=== PATIENT | female | born 1995 | race Caucasian/White ===

== ENCOUNTER 2020-02-25 19:55 | Inpatient (IN) | payer OTHER ==
[2020-02-25] MEDS ORDERED: Nalbuphine 10 MG/ML Syringe IVPUSH PRN (21:08)
[2020-02-25] MEDS ORDERED: Sodium Chloride 0.9% 10 ML Syringe FLUSH PRN (21:08)
[2020-02-25] MEDS ORDERED: Ondansetron 4 MG/2 ML SDV IVPUSH PRN (21:08)
[2020-02-25] MEDS ORDERED: Oxytocin/Lactated Ringers 10 UNIT/1,000 ML BAG IV SCH (21:15)
[2020-02-25] MEDS: Lactated Ringers 1,000 ML IV SCH (21:30)
[2020-02-25] MEDS ORDERED: Ampicillin 2 GM in Sodium Chloride 0.9% 100 ML IV ONE (21:30)
--- NOTE | 2020-02-25 21:47 | PCM.LDHP ---
L&D History of Present Illness - General Date of Service: 02/25/20 Admit Problem/Dx: Patient Status Order with Admit Dx/Problem 02/25/20 20:07 Patient Status [ADT] Routine Admission Diagnosis/Problem Admission Diagnosis/Problem 02/25/20 21:36 Cora is a 24-year-old 1 para 0 white female admitted on 02/25/2020 with decreased activity and suspected rupture membranes at 39-4/7 weeks gestational age with an STU of 02/28/2020. Amnio sure is positive. Cervix is dilated somewhat since her last visit in clinic and is at plus centimeters, 80% effaced, -3 station, mid position, soft, cephalic presentation. Source of Information: Patient History Limitations: Reports: No Limitations - History of Present Illness Introduction:: Cora is a 24-year-old 1 para 0 white female admitted on 02/25/2020 with decreased activity and suspected rupture membranes at 39-4/7 weeks gestational age with an STU of 02/28/2020. Amnisure is positive. Cervix is dilated somewhat since her last visit in clinic and is at plus centimeters, 80% effaced, -3 station, mid position, soft, cephalic presentation. heart tones reassuring with reactive NST. Contractions are occurring every 3-5 minutes and are mild in nature. [employer] history: Cora is a 1 para 0. Her STU of 02/28/2020 was sent by certain last menstrual period starting on 05/24/2019 is supported by 2 ultrasound during the . These were done on 08/09/2019 and 10/25/2019. Patient was seen early in the with her first visit on 2018 at 12 weeks gestational age. She was seen regularly during the course of . She had a weight gain of approximately 24.6 pounds. This was from a pre- weight of 148.8 pounds 2 173.2 pounds. Vital signs remained stable throughout the course and her fundal height growth was appropriate for dates. She is group B strep positive but has no allergies therefore has been advised to undergo ampicillin group B strep prophylaxis per protocol. She plans to breast-feed. She was a centering patient. [place] noninvasive screen was performed and was negative for trisomy 21, 18 and 13. Patient plans to have epidural in labor and delivery for analgesia. Laboratory testing shows blood to be A+ with a negative MRI screening. Hemoglobin is 13.0 g/dL first medical visit and platelets were 292,000. She is rubella immune. Patient group B strep on her initial urine culture. Hepatitis B surface antigen and HIV SCDs were both negative. Chlamydia and gonorrhea assays were both negative. Had her T Dap immunization on 01/03/2020. Second trimester labs show hemoglobin of 11.8 g or deciliter and platelets at 243,000. Her 1 hour GTT was normal at 118. RPR on 08/09/2019 was nonreactive. Allergies: None Medications: 1. Colace 100 mg oral capsules 1-3 times per day when necessary for constipation 2. gummy vitamins 2 per day 3. Ferrous sulfate 325 mg by mouth daily Past medical history: 1. [place] teeth extraction 2009. Past surgical history: Unremarkable Family history: Mother is alive with thyroid dysfunction on medication. Father is alive and well. 2 sisters alive and generally healthy. Younger sister has thyroid dysfunction and is on medication. Maternal grandmother is alive and well. Maternal grandfather is secondary to type 2 diabetes and obesity. Paternal grandmother is secondary to MS. Paternal grandfather is alive and well at age 93. There is no known family history of cancer, bleeding or blood clotting disorders, anesthesia-related issues or - related problems. Social history: Patient is . is Dre. She works at [employer] and [employer]. She is a high school graduate. She does not use any significant most alcohol, drugs or tobacco. She lives in [place], [place]. Review of systems: In general patient has no complaints. She does report intermittent loss of a very small amount of vaginal fluid. Denies any UTI symptoms. Baby's activity has decreased slightly. Skin: Negative Lungs: No infectious symptoms or shortness of breath Cardiovascular: No chest pain or exercise intolerance Breasts: No lumps, changes in size, pain, dimpling, discharge or axillary or supraclavicular concerns. Changes associated with . GI: Negative : changes Musculoskeletal: Negative Neurological: Negative In general the patient is well-developed, well-nourished, pleasant female of stated age in no acute distress. Last evaluation clinic vital signs are stable. Her blood pressure 110/70. Weight was 173.2 with a pregravid weight of 148.8 pounds. Height is 5 feet 6 inches. Prepregnancy BMI is 23.4. heart rate was 126. Skin is warm dry without lesions. HEENT, neck and back within normal limits. Lungs are clear with good breath sounds in all lung hendrix. Cardiovascular exam shows regular and rhythm without murmurs. Breast exam is deferred having been done first pelvis and found to be normal it is not repeated at this time. Abdomen is gravid with last fundal height clinic at 39 cm. Baby in vertex presentation by Kimo.. Genital digital exam is as per history of present illness.. Extremities and neurological exam are grossly within normal limits. - Related Data Allergies/Adverse Reactions: Allergies Allergy/AdvReac Type Severity Reaction Status Date / Time No Known Allergies Allergy Verified 07/13/16 21:50 Home Medications: Home Meds Levonorgestrel-Ethin Estradiol [Marlissa-28 Tablet] 1 tab PO DAILY 07/13/16 [ History] Ondansetron [Zofran ODT] 4 mg PO Q6H PRN #7 tab.dis 07/13/16 [Rx] Past Medical History - Past Surgical History HEENT Surgical History: Reports: Oral Surgery Social & Family History - Caffeine Use Caffeine Use: Reports: Soda H&P Review of Systems - Review of Systems: Review Of Systems: See Below L&D Exam - Exam Exam: See Below - Vital Signs Vital Signs: Last Vital Signs Temp 37.0 C 02/25/20 20:23 Pulse 65 02/25/20 20:23 Resp 16 02/25/20 20:23 BP 121/71 02/25/20 20:23 Pulse Ox 99 02/25/20 20:23 Weight: 78.925 kg - Patient Data Lab Results Last 24 hrs: Laboratory Results - last 24 hr 02/25/20 02/25/20 Range/Units 20:30 20:35 Urine Color Yellow (Yellow) Urine Appearance Clear (Clear) Urine pH 7.0 (5.0-8.0) Ur Specific [place] 1.025 (1.005-1.030) Urine Protein Negative (Negative) Urine Glucose (UA) Negative (Negative) Urine Ketones Negative (Negative) Urine Occult Blood Negative (Negative) Urine Nitrite Negative (Negative) Urine Bilirubin Negative (Negative) Urine Urobilinogen 0.2 (0.2-1.0) Ur Leukocyte Esterase Negative (Negative) Urine RBC 0-5 (0-5) /hpf Urine WBC 0-5 (0-5) /hpf Ur Squamous Epith Cells 5-10 H (0-5) /hpf Urine Bacteria Few (FEW) /hpf Urine Mucus Rare (FEW) /hpf Membrane Rupture Positive H Problem List Initiated/Reviewed/Updated: Yes Orders Last 24hrs: Active Orders 24 hr Category Date Time Status Patient Status [ADT] Routine ADT 02/25/20 20:07 Active Activity as Tolerated [RC] PFP Care 02/25/20 21:08 Active Communication Order [RC] ASDIRECTED Care 02/25/20 21:08 Active Heart Tones [RC] ASDIRECTED Care 02/25/20 21:09 Active Non Stress Test [RC] PER UNIT ROUTINE Care 02/25/20 20:07 Active Non Stress Test [RC] PER UNIT ROUTINE Care 02/25/20 21:08 Active Notify Provider [RC] PFP Care 02/25/20 21:08 Active Notify Provider [RC] PRN Care 02/25/20 21:08 Active Peripheral IV Care [RC] . DIRECTED Care 02/25/20 21:09 Active Urinary Catheter Assessment [RC] ASDIRECTED Care 02/25/20 21:08 Active Vital Signs [RC] PER UNIT ROUTINE Care 02/25/20 20:07 Active Vital Signs [RC] PER UNIT ROUTINE Care 02/25/20 21:08 Active Regular Diet [DIET] Diet 02/25/20 Breakfast Active CBC WITH AUTO DIFF [HEME] Stat Lab 02/25/20 21:22 Received RAPID PLASMA REAGIN,RPR [CHEM] Routine Lab 02/25/20 21:22 Received TYPE AND SCREEN [BBK] Stat Lab 02/25/20 21:22 Received Ampicillin 1 gm Med 02/26/20 02:00 Active Sodium Chloride 0.9% [Normal Saline] 100 ml IV Q4H Ampicillin 2 gm Med 02/25/20 21:30 Active Sodium Chloride 0.9% [Normal Saline] 100 ml IV ONETIME Lactated Ringers [Ringers, Lactated] 1,000 ml Med 02/25/20 21:15 Active IV ASDIRECTED Nalbuphine [Nubain] Med 02/25/20 21:08 Active 10 mg IVPUSH Q2H PRN Ondansetron [Zofran] Med 02/25/20 21:08 Active 4 mg IVPUSH Q4H PRN Oxytocin/Lactated Ringers [Pitocin in LR 10 Units/1,000 Med 02/25/20 21:15 Active ML] 10 unit in 1,000 ml IV .CONTINUOUS Sodium Chloride 0.9% [Saline Flush] Med 02/25/20 21:08 Active 10 ml FLUSH ASDIRECTED PRN Electronic Heart Tones Ext w TOCO [WOMSER] Oth 02/25/20 21:08 Ordered Routine Electronic Heart Tones Internal [WOMSER] Per Unit Ot 02/25/20 21:08 Ordered Routine Peripheral IV Insertion Adult [OM.PC] Routine Ot 02/25/20 21:08 Ordered Resuscitation Status Routine Resus Stat 02/25/20 20:07 Ordered Medication Orders Ampicillin Sodium 2 gm/ Sodium (Chloride) 100 mls @ 200 mls/hr IV ONETIME ONE Stop: 02/25/20 21:59 Ampicillin Sodium 1 gm/ Sodium (Chloride) 100 mls @ 200 mls/hr IV Q4H OBDULIA Lactated Ringer's (Ringers, Lactated) 1,000 mls @ 100 mls/hr IV ASDIRECTED OBDULIA Oxytocin/Lactated Ringer's (Pitocin In Lr 10 Units/1,000 Ml) 10 unit in 1,000 mls @ 500 mls/hr IV .CONTINUOUS OBDULIA Nalbuphine HCl (Nubain) 10 mg IVPUSH Q2H PRN PRN Reason: Pain Ondansetron HCl (Zofran) 4 mg IVPUSH Q4H PRN PRN Reason: Nausea/Vomiting Sodium Chloride (Saline Flush) 10 ml FLUSH ASDIRECTED PRN PRN Reason: Keep Vein Open Assessment/Plan Comment:: 1. 39-4/7 week intrauterine , spontaneous rupture membranes, early labor with mild cervical change since last clinic evaluation 2. Group B strep screen positivepatient is not allergic to penicillin-is a candidate for ampicillin prophylaxis in L&D. 3. Patient desiring epidural for labor analgesia 4. Patient is rubella immune 5. Patient has received her TDap in the course of this 6. Patient plans to breast-feed. 7. Patient was a centering patient 8. Patient had noninvasive screen which was negative for pleasant 21, 18 and 13. Plan: 1. Anticipate normal spontaneous vaginal delivery. Since it is not totally clear when patient ruptured membranes and she thinks it may have been this a.m. we'll monitor until second dose of ampicillin is in and th the patient is not having adequate labor pattern may consider Pitocin augmentation. 2. Ampicillin per protocol for group B strep positive status 3. Epidural when necessary per patient desire for labor analgesia. 4. Support breast-feeding decision 5. Routine labor care.
[2020-02-26] MEDS ORDERED: Oxytocin/Lactated Ringers 10 UNIT/1,000 ML BAG IV SCH (01:00)
[2020-02-26] MEDS: Ampicillin 1 GM in Sodium Chloride 0.9% 100 ML IV SCH ×5 (01:23→20:54)
[2020-02-26] MEDS ORDERED: diphenhydrAMINE 50 MG/ML SDV IVPUSH PRN (08:39)
[2020-02-26] MEDS ORDERED: Bupivacaine/fentaNYL/NS 100 ML Bag EPIDUR PRN (08:39)
[2020-02-26] MEDS ORDERED: ePHEDrine 50 MG/ML SDV IVPUSH PRN (08:39)
[2020-02-26] MEDS: fentaNYL 100 MCG/2 ML SDV EPIDUR PRN ×2 (08:58→14:53)
[2020-02-26] MEDS: Lactated Ringers 1,000 ML IV SCH ×3 (08:58→11:48)
--- NOTE | 2020-02-26 09:38 | PCM.PREANE ---
Preanesthetic Assessment - Procedure Proposed Procedure: Labor Epidural - Anesthesia/Transfusion/Family Hx Anesthesia History: Prior Anesthesia Without Reaction Family History of Anesthesia Reaction: No Transfusion History: No Prior Transfusion(s) - Review of Systems General: No Symptoms Pulmonary: No Symptoms Cardiovascular: No Symptoms Gastrointestinal: No Symptoms Neurological: No Symptoms Other: Reports: None - Physical Assessment Vital Signs: Last Vital Signs Temp 37.0 C 02/25/20 20:23 Pulse 65 02/25/20 20:23 Resp 16 02/25/20 20:23 BP 121/71 02/25/20 20:23 Pulse Ox 99 02/25/20 20:23 Height: 1.68 m Weight: 78.925 kg ASA Class: 2 Mental Status: Alert & Oriented x3 Airway Class: Mallampati = 2 Dentition: Reports: Normal Dentition Thyro-Mental Finger Breadths: 3 Mouth Opening Finger Breadths: 3 ROM/Head Extension: Full Lungs: Clear to Auscultation, Normal Respiratory Effort Cardiovascular: Regular Rate, Regular Rhythm - Lab Values: Laboratory Last Values WBC 7.59 K/mm3 (3.98-10.04) 02/25/20 21: RBC 3.82 M/mm3 (3.98-5.22) L 02/25/20 21:22 Hgb 12.6 gm/dl (11.2-15.7) 02/25/20 21:22 Hct 36.1 % (34.1-44.9) 02/25/20 21:22 MCV 94.5 fl (79.4-94.8) 02/25/20 21:22 MCH 33.0 pg (25.6-32.2) H 02/25/20 21:22 MCHC 34.9 g/dl (32.2-35.5) 02/25/20 21:22 RDW Std Deviation 43.8 fL (36.4-46.3) 02/25/20 21:22 Plt Count 201 K/mm3 (182-369) 02/25/20 21:22 MPV 11.7 fl (9.4-12.3) 02/25/20 21:22 Neut % (Auto) 63.7 % (34.0-71.1) 02/25/20 21:22 Lymph % (Auto) 22.5 % (19.3-51.7) 02/25/20 21:22 [place] % (Auto) 11.7 % (4.7-12.5) 02/25/20 21: Eos % (Auto) 1.3 (0.7-5.8) 02/25/20: Baso % (Auto) 0.1 % (0.1-1.2) 02/25/20 21: Neut # (Auto) 4.83 K/mm3 (1.56-6.13) 02/25/20 21: Lymph # (Auto) 1.71 K/mm3 (1.18-3.74) 02/25/20 21: [place] # (Auto) 0.89 K/mm3 (0.24-0.36) H 02/25/20 21: Eos # (Auto) 0.10 K/mm3 (0.04-0.36) 02/25/20: Baso # (Auto) 0.01 K/mm3 (0.01-0.08) 02/25/20: Urine Color Yellow (Yellow) 02/25/20 20:30 Urine Appearance Clear (Clear) 02/25/20 20:30 Urine pH 7.0 (5.0-8.0) 02/25/20 20:30 Ur Specific [place] 1.025 (1.005-1.030) 02/25/20 20:30 Urine Protein Negative (Negative) 02/25/20 20:30 Urine Glucose (UA) Negative (Negative) 02/25/20 20:30 Urine Ketones Negative (Negative) 02/25/20 20:30 Urine Occult Blood Negative (Negative) 02/25/20 20:30 Urine Nitrite Negative (Negative) 02/25/20 20:30 Urine Bilirubin Negative (Negative) 02/25/20 20:30 Urine Urobilinogen 0.2 (0.2-1.0) 02/25/20 20:30 Ur Leukocyte Esterase Negative (Negative) 02/25/20 20:30 Urine RBC 0-5 /hpf (0-5) 02/25/20 20:30 Urine WBC 0-5 /hpf (0-5) 02/25/20 20:30 Ur Squamous Epith Cells 5-10 /hpf (0-5) H 02/25/20 20:30 Urine Bacteria Few /hpf (FEW) 02/25/20 20:30 Urine Mucus Rare /hpf (FEW) 02/25/20 20:30 Membrane Rupture Positive H 02/25/20 20:35 Blood Type A POSITIVE 02/25/20 21:22 Gel Antibody Screen Negative 02/25/20 21:22 - Allergies Allergies/Adverse Reactions: Allergies Allergy/AdvReac Type Severity Reaction Status Date / Time No Known Allergies Allergy Verified 07/13/16 21:50 - Acknowledgements Anesthesia Type Planned: Epidural Pt an Appropriate Candidate for the Planned Anesthesia: Yes Alternatives and Risks of Anesthesia Discussed w Pt/Guardian: Yes Pt/Guardian Understands and Agrees with Anesthesia Plan: Yes PreAnesthesia Questionnaire HEENT History: Reports: None Cardiovascular History: Reports: None Respiratory History: Reports: None Gastrointestinal History: Reports: Other (See Below) Other Gastrointestinal History: Constipation Genitourinary History: Reports: None SENIOR POWER SCHEDULER History: Reports: None Musculoskeletal History: Reports: None Neurological History: Reports: None Psychiatric History: Reports: Anxiety Endocrine/Metabolic History: Reports: None Hematologic History: Reports: Anemia, Other (See Below) Other Hematologic History: Pt takes a Daily Iron Supplement Immunologic History: Reports: None Oncologic (Cancer) History: Reports: None Dermatologic History: Reports: None - Past Surgical History HEENT Surgical History: Reports: Oral Surgery - SUBSTANCE USE Smoking Status *Q: Never Smoker Second Hand Smoke Exposure: No Recreational Drug Use History: No - HOME MEDS Home Medications: Home Meds Docusate Sodium [Colace] 100 mg PO DAILY 02/25/20 [History] Ferrous Sulfate [Iron] 325 cap PO DAILY 02/25/20 [History] Pnv No.103/Folic/Om3s/Fish Oil [ Gummies] 1 each PO 02/25/20 [History] - CURRENT (IN HOUSE) MEDS Current Meds: Current Medications Diphenhydramine HCl (Benadryl) 25 mg IVPUSH Q6H PRN PRN Reason: pruritis Ephedrine Sulfate (Ephedrine Sulfate) 5 mg IVPUSH ASDIRECTED PRN PRN Reason: Hypotension Fentanyl (Sublimaze) 100 mcg EPIDUR Q3H PRN PRN Reason: Pain Last Admin: 02/26/20 08:58 Dose: 100 mcg Fentanyl/Bupivacaine HCl (Fentanyl/Bupivacaine/Ns 2 Mcg-0.125% 100 Ml) 100 ml EPIDUR ASDIRECTED PRN PRN Reason: Pain Last Admin: 02/26/20 08:59 Dose: 100 ml Ampicillin Sodium 1 gm/ Sodium (Chloride) 100 mls @ 200 mls/hr IV Q4H OBDULIA Last Admin: 02/26/20 05:24 Dose: 200 mls/hr Lactated Ringer's (Ringers, Lactated) 1,000 mls @ 100 mls/hr IV ASDIRECTED OBDULIA Last Admin: 02/26/20 09:31 Dose: 100 mls/hr Oxytocin/Lactated Ringer's (Pitocin In Lr 10 Units/1,000 Ml) 10 unit in 1,000 mls @ 500 mls/hr IV .CONTINUOUS OBDULIA Oxytocin/Lactated Ringer's (Pitocin In Lr 10 Units/1,000 Ml) 10 unit in 1,000 mls @ 12 mls/hr IV TITRATE OBDULIA; Protocol Last Titration: 02/26/20 06:59 Dose: 10 munits/min, 60 mls/hr Nalbuphine HCl (Nubain) 10 mg IVPUSH Q2H PRN PRN Reason: Pain Ondansetron HCl (Zofran) 4 mg IVPUSH Q4H PRN PRN Reason: Nausea/Vomiting Sodium Chloride (Saline Flush) 10 ml FLUSH ASDIRECTED PRN PRN Reason: Keep Vein Open Discontinued Medications Ampicillin Sodium 2 gm/ Sodium (Chloride) 100 mls @ 200 mls/hr IV ONETIME ONE Stop: 02/25/20 21:59 Last Admin: 02/25/20 21:30 Dose: 200 mls/hr
--- NOTE | 2020-02-26 09:39 | PCM.SN.2 ---
- Free Text/Narrative Note: L&D update: Epidural placed for labor analgesia. Patient had a large gush of fluid at approximately 0700 hrs. today. Labor has intensified and Pitocin which had been on 14 mU/mL was turned down and now is essentially turned off. Contractions every 3 minutes. heart tones show reassuring variability, no significant decelerations and a heart rate of 120 to 1:30. Cervix is 4+ centimeters/95% effaced/-2 station/anterior/very soft/cephalic presentation/bloody show present Assessment: Fair progress in labor inspection of the gross ruptured membranes has occurred. Question accuracy of the equivocal amnisure done last evening. Plan: 1. Continue with labor as at present. Anticipate . 2. Epidural for labor analgesia 3. Close contraction and heart tone monitoring.
--- NOTE | 2020-02-26 16:40 | PCM.SN.2 ---
- Free Text/Narrative Note: Delivery note: Cora is a 24-year-old 1 para 0 white female admitted on 02/25/2020 with decreased activity and suspected rupture membranes at 39-4/7 weeks gestational age with an STU of 02/28/2020. Amnio sure was positive. Cervix was dilated somewhat more since her last visit in clinic and was at 3 plus centimeters, 80% effaced, -3 station, mid position, soft, cephalic presentation. Since the actual time of initial rupture membranes was not known the patient was started on Pitocin. The infusion eventually reached a dose of 14 mU/m. She was troy well. She had that time had gross rupture membranes suggesting that she had a slow continuously prior to that point. Thereafter the Pitocin was decreased and eventually stopped because patient's became more intense spontaneously. Cora progressed more rapidly then to complete cervical dilation. She pushed for approximately 2 hours and at 1613 hrs. on 02/26/2020 she delivered a viable 3990 g (8 pounds 12.7 ounces) male with Apgars of 8 and 9, a length of 21.0 inches in a direct occiput anterior position. Baby was placed on mom's abdomen and nose and mouth were bulb suctioned. Pitocin was increased to 500 mL per hour per protocol to facilitate increase in uterine tone and decrease the likelihood of bleeding. Cord was obtained. Umbilical cord had 3 vessels present within it. She had a second-degree laceration which was repaired with 3-0 Monocryl in a routine fashion. Epidural analgesia was used for laceration repair anesthesia. Patient tolerated the procedure well. The placenta delivered in a Law presentation, appeared intact and complete and was discarded per patient desire. Estimated blood loss was approximately 200 mL. Patient plans to breast-feed. Condition: Good.
[2020-02-26] MEDS ORDERED: Acetaminophen 325 MG Tab PO PRN (18:07)
[2020-02-26] MEDS: Benzocaine/Menthol 20%-0.5% Spray 56 GM Canister TOP PRN (18:57)
[2020-02-26] MEDS: Witch Hazel Medicated Pads 40/Jar TOP PRN (18:58)
[2020-02-26] MEDS: Ibuprofen 600 MG Tab PO PRN ×2 (18:58→22:53)
[2020-02-27] MEDS ORDERED: Bupivacaine 0.25% 10 ML SDV ONE
[2020-02-27] MEDS: Ibuprofen 600 MG Tab PO PRN ×3 (03:16→18:43)
[2020-02-27] MEDS: Docusate Sodium 100 MG Cap PO PRN ×2 (03:16→18:06)
[2020-02-27] MEDS: Witch Hazel Medicated Pads 40/Jar TOP PRN (05:57)
--- NOTE | 2020-02-27 08:15 | PCM.SN.2 ---
- Free Text/Narrative Note: note: Patient is doing well in the period. Minimal lochia, voiding well, ambulated without problems. Nursing without concerns. Patient is afebrile, vital signs are stable Abdomen is flat, soft, uterus is below the umbilicus and is firm and nontender. Legs are nontender. Assessment: recovery going well. Plan: Routine care. Patient be discharged home within the next 24-48 hours.
--- NOTE | 2020-02-27 08:16 | PCM48HPAN ---
Post Anesthesia Note - EVALUATION WITHIN 48HRS OF ANESTHETIC Vital Signs in Normal Range: Yes Patient Participated in Evaluation: Yes Respiratory Function Stable: Yes Airway Patent: Yes Cardiovascular Function Stable: Yes Hydration Status Stable: Yes Pain Control Satisfactory: Yes Nausea and Vomiting Control Satisfactory: Yes Mental Status Recovered: Yes Vital Signs: Last Vital Signs Temp 36.6 C 02/27/20 03:13 Pulse 69 02/27/20 03:13 Resp 16 02/27/20 03:13 BP 105/65 02/27/20 03:13 Pulse Ox 100 02/27/20 03:13 - COMMENTS/OBSERVATIONS Free Text/Narrative:: no anesthesia complications noted
[2020-02-27] MEDS: Prenatal Multivitamin with Calcium/Folic Acid/Iron Tab PO SCH (10:04)
[2020-02-28] MEDS: Ibuprofen 600 MG Tab PO PRN ×2 (06:14→10:01)
--- NOTE | 2020-02-28 06:18 | PCM.DCSUM1 ---
Discharge Summary - Hospital Course Free Text/Narrative:: Cora is a 24-year-old 1 para 0 white female admitted on 02/25/2020 with decreased activity and suspected rupture membranes at 39-4/7 weeks gestational age with an STU of 02/28/2020. Amnio sure was positive. Cervix was dilated somewhat more since her last visit in clinic and was at 3 plus centimeters, 80% effaced, -3 station, mid position, soft, cephalic presentation. Since the actual time of initial rupture membranes was not known the patient was started on Pitocin. The infusion eventually reached a dose of 14 mU/m. She was troy well. She had that time had gross rupture membranes suggesting that she had a slow continuously prior to that point. Thereafter the Pitocin was decreased and eventually stopped because patient's became more intense spontaneously. Cora progressed more rapidly then to complete cervical dilation. She pushed for approximately 2 hours and at 1613 hrs. on 02/26/2020 she delivered a viable 3990 g (8 pounds 12.7 ounces) male infant with Apgars of 8 and 9, a length of 21.0 inches in a direct occiput anterior position. Baby was placed on mom's abdomen and nose and mouth were bulb suctioned. Pitocin was increased to 500 mL per hour per protocol to facilitate increase in uterine tone and decrease the likelihood of bleeding. Cord was obtained. Umbilical cord had 3 vessels present within it. She had a second-degree laceration which was repaired with 3-0 Monocryl in a routine fashion. Epidural analgesia was used for laceration repair anesthesia. Patient tolerated the procedure well. The placenta delivered in a Law presentation, appeared intact and complete and was discarded per patient desire. Estimated blood loss was approximately 200 mL. patient has done very well she is nursing without problems, has minimal lochia, was ambulating well and voiding without concerns. She is desiring discharge home. Condition: Good. Diagnosis: Stroke: No - Discharge Data Discharge Date: 02/28/20 Discharge Disposition: Home, Self-Care 01 Condition: Good - Referral to Home Health Primary Care Physician: Erick Lazaro MD - Patient Instructions Diet: Regular Diet as Tolerated (Nursing diet with increase calories and calcium as recommended) Activity: As Tolerated (No intercourse or tampons until bleeding resolves.) Driving: May Drive Today Showering/Bathing: May Shower (May take a bath) Notify Provider of: Fever, Increased Pain, Swelling and Redness, Nausea and/or Vomiting - Discharge Plan *PRESCRIPTION DRUG MONITORING PROGRAM REVIEWED*: No Home Medications: Home Meds Docusate Sodium [Colace] 100 mg PO DAILY 02/25/20 [History] Ferrous Sulfate [Iron] 325 cap PO DAILY 02/25/20 [History] Pnv No.103/Folic/Om3s/Fish Oil [ Gummies] 1 each PO 02/25/20 [History] Acetaminophen [Tylenol] 650 mg PO Q4H PRN tablet 02/28/20 [Rx] Ibuprofen [Motrin] 600 mg PO Q4H PRN tablet 02/28/20 [Rx] Referrals: Erick Lazaro MD [Primary Care Provider] - (Return to clinicDr. Lazaro or Mary juarez nurse practitioner-in 2 weeks.) - Discharge Summary/Plan Comment DC Time >30 min.: No Discharge Summary/Plan Comment: Discharge instructions: 1. Discharge home 2. Diet, activity and follow-up discussed with patient. Recommend nursing diet with increased calories and calcium. 3. Precautions given concern increased pain, bleeding, temperature, signs/ symptoms of DVT/PE. 4. Medications per home medication was printed, discussed with and given to the patient. 5. Return to clinic-Dr. Lazaro or Mary juarez nurse practitioner-[facility] [place] in 2 weeks. Diagnosis: Term -delivered Condition: Good - Patient Data Vitals - Most Recent: Last Vital Signs Temp 36.8 C 02/28/20 03:07 Pulse 81 02/28/20 03:07 Resp 14 02/28/20 03:07 BP 117/84 02/28/20 03:07 Pulse Ox 97 02/28/20 03:07 Weight - Most Recent: 78.925 kg Med Orders - Current: Current Medications Acetaminophen (Tylenol) 650 mg PO Q4H PRN PRN Reason: mild pain or fever Benzocaine/Menthol (Dermoplast Pain Relief [place]ett) 0 gm TOP ASDIRECTED PRN PRN Reason: Perineal Comfort Measure Last Admin: 02/26/20 18:57 Dose: 1 can Docusate Sodium (Colace) 100 mg PO BID PRN PRN Reason: Constipation Last Admin: 02/27/20 18:06 Dose: 100 mg Ibuprofen (Motrin) 600 mg PO Q4H PRN PRN Reason: Mild pain or fever Last Admin: 02/27/20 18:43 Dose: 600 mg Prenat Multivit/[place]/Iron/Folic Ac ( Plus Iron) 1 each PO DAILY OBDULIA Last Admin: 02/27/20 10:04 Dose: 1 each Witch Gracie (Tucks) 1 pad TOP ASDIRECTED PRN PRN Reason: Perineal Comfort Measure Last Admin: 02/27/20 05:57 Dose: 1 tub Discontinued Medications Bupivacaine HCl (Sensorcaine-Mpf 0.25%) 20 ml .ROUTE .STK-MED ONE Stop: 02/27/20 00:01 Diphenhydramine HCl (Benadryl) 25 mg IVPUSH Q6H PRN PRN Reason: pruritis Ephedrine Sulfate (Ephedrine Sulfate) 5 mg IVPUSH ASDIRECTED PRN PRN Reason: Hypotension Fentanyl (Sublimaze) 100 mcg EPIDUR Q3H PRN PRN Reason: Pain Last Admin: 02/26/20 14:53 Dose: 100 mcg Fentanyl/Bupivacaine HCl (Fentanyl/Bupivacaine/Ns 2 Mcg-0.125% 100 Ml) 100 ml EPIDUR ASDIRECTED PRN PRN Reason: Pain Last Admin: 02/26/20 08:59 Dose: 100 ml Ampicillin Sodium 2 gm/ Sodium (Chloride) 100 mls @ 200 mls/hr IV ONETIME ONE Stop: 02/25/20 21:59 Last Admin: 02/25/20 21:30 Dose: 200 mls/hr Ampicillin Sodium 1 gm/ Sodium (Chloride) 100 mls @ 200 mls/hr IV Q4H OBDULIA Last Admin: 02/26/20 20:54 Dose: Not Given Lactated Ringer's (Ringers, Lactated) 1,000 mls @ 100 mls/hr IV ASDIRECTED OBDULIA Last Admin: 02/26/20 11:48 Dose: 100 mls/hr Oxytocin/Lactated Ringer's (Pitocin In Lr 10 Units/1,000 Ml) 10 unit in 1,000 mls @ 500 mls/hr IV .CONTINUOUS OBDULIA Oxytocin/Lactated Ringer's (Pitocin In Lr 10 Units/1,000 Ml) 10 unit in 1,000 mls @ 12 mls/hr IV TITRATE OBDULIA; Protocol Last Titration: 02/26/20 16:13 Dose: 500 mls/hr Nalbuphine HCl (Nubain) 10 mg IVPUSH Q2H PRN PRN Reason: Pain Ondansetron HCl (Zofran) 4 mg IVPUSH Q4H PRN PRN Reason: Nausea/Vomiting Last Admin: 02/26/20 11:49 Dose: 4 mg Sodium Chloride (Saline Flush) 10 ml FLUSH ASDIRECTED PRN PRN Reason: Keep Vein Open
[2020-02-28] MEDS: Benzocaine/Menthol 20%-0.5% Spray 56 GM Canister TOP PRN (10:01)
[2020-02-28] MEDS: Docusate Sodium 100 MG Cap PO PRN (10:01)
[2020-02-28] MEDS: Witch Hazel Medicated Pads 40/Jar TOP PRN (10:02)
[2020-02-28] MEDS: Prenatal Multivitamin with Calcium/Folic Acid/Iron Tab PO SCH (10:02)
[2020-02-28 15:35] VITALS: BP 111/76; PULSE 88
== END 2020-02-28 13:30 | disposition home or self-care (01) | DRG 807 ==
LOC: JD.OBCHECK 19:55 → JD.OB 20:07 → JD.OBCHECK 20:59 → JD.OB 21:00 → OBSVTOIN 02-26 16:13 → JD.OB 02-26 16:14
PROVIDERS: ADMIT Obstetrics & Gynecology; ATTEND Obstetrics & Gynecology
PROC: 10E0XZZ Delivery of Products of Conception, External Approach (ICD-10-PCS; principal; 2020-02-26)
PROC: 0KQM0ZZ Repair Perineum Muscle, Open Approach (ICD-10-PCS; 2020-02-26)
PROC: 3E0R3BZ Introduction of Anesthetic Agent into Spinal Canal, Percutaneous Approach (ICD-10-PCS; 2020-02-26)
DX: O76 Abnormality in fetal heart rate and rhythm complicating labor and delivery (principal); Z37.0 Single live birth; Z3A.39 39 weeks gestation of pregnancy; O99.824 Streptococcus B carrier state complicating childbirth; O70.1 Second degree perineal laceration during delivery; O99.02 Anemia complicating childbirth; D64.9 Anemia, unspecified
CPT/HCPCS: 01967; 36415; 51701; 51702; 59025; 59409; 81001; 84112; 85025; 86592; 86850; 86900; 86901; A9270-GY; J0290; J2405; J2590; J3010; J3490; J7050; J7120

== ENCOUNTER 2021-11-28 00:21 | Inpatient (IN) | payer OTHER ==
[2021-11-28] MEDS ORDERED: Sodium Chloride 0.9% 10 ML Syringe FLUSH PRN (19:08)
[2021-11-28] MEDS ORDERED: Lidocaine 1% 50 ML MDV INJECT ONE (19:08)
[2021-11-28] MEDS ORDERED: Calcium Carbonate 500 MG Tab.Chew PO PRN (19:08)
[2021-11-28] MEDS ORDERED: Ondansetron 4 MG/2 ML SDV IVPUSH PRN (19:08)
[2021-11-28] MEDS ORDERED: Nalbuphine 10 MG/1 ML Vial IVPUSH PRN (19:08)
[2021-11-28] MEDS ORDERED: Oxytocin/Lactated Ringers 10 UNIT/1,000 ML BAG IV SCH ×2 (19:15→19:45)
[2021-11-28] MEDS: Lactated Ringers 1,000 ML IV SCH ×3 (19:59→22:54)
[2021-11-28] MEDS ORDERED: Sodium Chloride 0.9% 10 ML Syringe FLUSH SCH (21:00)
[2021-11-28] MEDS ORDERED: Bupivacaine/fentaNYL/NS 100 ML Bag EPIDUR PRN (21:54)
[2021-11-28] MEDS ORDERED: ePHEDrine 50 MG/ML SDV IVPUSH PRN (21:54)
[2021-11-28] MEDS ORDERED: diphenhydrAMINE 50 MG/ML SDV IVPUSH PRN (21:54)
[2021-11-28] MEDS ORDERED: fentaNYL 100 MCG/2 ML SDV EPIDUR PRN (21:54)
[2021-11-29] MEDS ORDERED: Bupivacaine 0.25% 10 ML SDV ONE
[2021-11-29] MEDS ORDERED: Benzocaine/Menthol 20%-0.5% Spray 78 GM Cannister TOP PRN (00:45)
[2021-11-29] MEDS ORDERED: Witch Hazel Medicated Pads 40/Jar TOP PRN (00:45)
[2021-11-29] MEDS ORDERED: Acetaminophen 325 MG Tab PO PRN (00:45)
[2021-11-29] MEDS: Ibuprofen 600 MG Tab PO PRN ×5 (02:28→22:14)
[2021-11-29] MEDS: Sertraline 50 MG Tab PO SCH (10:17)
[2021-11-29] MEDS: Prenatal Multivitamin with Calcium/Folic Acid/Iron Tab PO SCH (10:17)
[2021-11-29] MEDS: Docusate Sodium 100 MG Cap PO PRN ×2 (13:57→22:18)
[2021-11-30] MEDS: Ibuprofen 600 MG Tab PO PRN (03:47)
[2021-11-30 11:09] VITALS: BP 129/85; PULSE 93
[2021-11-30] MEDS: Prenatal Multivitamin with Calcium/Folic Acid/Iron Tab PO SCH (11:24)
[2021-11-30] MEDS: Sertraline 50 MG Tab PO SCH (11:24)
== END 2021-11-30 10:40 | disposition home or self-care (01) | DRG 807 ==
LOC: JD.OB 00:21 → OBSVTOIN 11-29 00:21 → JD.OB 11-29 00:22
PROVIDERS: ADMIT Obstetrics & Gynecology; ATTEND Obstetrics & Gynecology
PROC: 10E0XZZ Delivery of Products of Conception, External Approach (ICD-10-PCS; principal; 2021-11-29)
PROC: 3E033VJ Introduction of Other Hormone into Peripheral Vein, Percutaneous Approach (ICD-10-PCS; 2021-11-29)
PROC: 3E0R3BZ Introduction of Anesthetic Agent into Spinal Canal, Percutaneous Approach (ICD-10-PCS; 2021-11-29)
PROC: 0HQ9XZZ Repair Perineum Skin, External Approach (ICD-10-PCS; 2021-11-29)
DX: O70.0 First degree perineal laceration during delivery (principal); Z37.0 Single live birth; Z3A.39 39 weeks gestation of pregnancy
CPT/HCPCS: 01967; 36415; 51702; 59025; 59409; 85025; 86592; A9270-GY; J2590; J3010; J3490; J7120